=== PATIENT | female | born 1980 | race Caucasian/White ===

== ENCOUNTER 2022-06-25 07:09 | Emergency (ER) | payer MEDICARE, SELFPAY ==
[2022-06-25 07:16] VITALS: BP 166/113; PULSE 96; TEMP 36.9; O2SAT 97; BMI 37.1
--- NOTE | 2022-06-25 07:22 | ED_ITS ---
HPI - Abdominal Pain General: Chief Complaint: Abdominal Pain Stated Complaint: abdomen pain Time Seen by Provider: 06/25/22 07:21 Source: patient Mode of arrival: ambulatory History of Present Illness: 42-year-old female presents emergency room complaining of sharp right lower quadrant abdominal pain that began yesterday. She denies fever sweats chills nausea vomiting diarrhea no hematochezia melena hematemesis coffee-ground emesis no dysuria urgency or frequency. Symptoms began yesterday afternoon and have persisted since then. She previously had ovarian cyst and had a surgery for that. MD elicited complaint: abdominal pain Onset (ago): day(s) (1) Pain Consistency: constant Location: RLQ Severity: mild Quality: cramping Radiation: none Migration to: no migration Exacerbating factors: nothing Associated Symptoms: Denies anorexia, belching, bloating, change in bowel habits, change in stool character, chills, coffee ground emesis, constipation, GI cramping, diarrhea, dyspepsia, dysuria, excessive flatus, fever(s), heartburn, hematochezia, hematuria, hematemesis, fecal incontinence, loose stools, melena, nausea, poor appetite, syncope and vomiting Review of Systems Const: Denies: fever(s) or chills Card: Denies: syncope GI: Denies: nausea, vomiting, hematemesis, coffee ground emesis, heartburn, d iarrhea, constipation, bloating, GI cramping, belching, excessive flatus, fecal incontinence, change in bowel habits, change in stool character, hematochezia or melena : Denies: dysuria or hematuria PFSH ED PFSH: Family History Grandmother Stroke maternal Grandfather Stroke maternal Cancer brain paternal Diabetes maternal Hypertension paternal Mother Hypertension Lung disease reactive airway disease Father Hypertension Brother Hypertension Sister Lung disease reactive airway disease Denies family history of CAD (coronary artery disease) Chronic kidney disease (CKD) Social History Smoking and tobacco status: never smoked Alcohol intake: never Adopted: No Caregiver/support person: No Lives independently: No Marital status: Single service: No Current occupational status: disabled Current gender identity: Female Physical Exam Const: GENERAL APPEARANCE: cooperative and comfortable ORIENTATION/CONSCIOUSNESS: Yes awake, Yes oriented to person, Yes oriented to place and Yes oriented to time HENMT: COMMON NORMALS: normocephalic, atraumatic and hearing grossly normal bilaterally HEAD & SCALP: normocephalic and atraumatic Resp: COMMON NORMALS: normal respiratory effort, No retractions, No use of accessory muscles and clear to auscultation bilaterally AUSCULTATION: clear to auscultation bilaterally Cardio: COMMON NORMALS: regular rate, regular rhythm and No murmurs present (Cardio) RATE: regular rate RHYTHM: regular rhythm GI: COMMON NORMALS: Soft to palpation and No hepatosplenomegaly present AUSCULTATION: Yes normoactive bowel sounds PALPATION: Yes Soft to palpation, No Tenderness to palpation present (GI), No Guarding due to palpation present (GI) and Yes No hepatosplenomegaly present Extremity: COMMON NORMALS: normal to inspection, capillary refill normal, no clubbing, cyanosis or edema, no calf tenderness and no pedal edema Neuro: SENSORIUM/ORIENTATION: Yes oriented to person, Yes oriented to place and Yes oriented to time Skin: COMMON NORMALS: no rashes or lesions noted GENERAL SKIN EXAM: no rashes or lesions noted Course Vital Signs: Vital signs: Vital Signs Temperature 98.5 F 06/25/22 07:16 Pulse Rate 89 06/25/22 08:33 Respiratory Rate 18 06/25/22 08:33 Blood Pressure 132/80 06/25/22 08:33 Pulse Oximetry 96 06/25/22 08:33 Oxygen Delivery Me thod 06/25/22 08:33 MDM - Abdominal Pain Medical Decision Making Labs and imaging reviewed. EKG shows normal sinus rhythm no acute ST changes. CT shows normal appendix no significant abnormalities adnexa. There is acute diverticulitis. We will treat with Cipro and Flagyl clinic diet 2 to 3 days and advance as tolerated. patient advised to follow-up with her primary care doctor should have a colonoscopy in the next few months after this has resolved. Medical Records I reviewed the patient's medical records. Lab Data I reviewed the patient's lab results. 06/25/22 07:45 06/25/22 07:45 Labs/Radiology: Radiology Impressions Abdomen/Pelvis CT 06/25/22 08:10 IMPRESSION: 1. Acute sigmoid diverticulitis. Asymmetric wall thickening with narrowing of the lumen with numerous adjacent diverticula. No abscess. Consider follow-up colonoscopy after the acute diverticulitis resolves to exclude an underlying lesion. Colonoscopy recommended due to the asymmetry of the lumen and wall thickening. 2. Normal appendix. 3. Negative gallbladder. 4. Moderate hiatal hernia. 5. Lobulated uterus with distortion of the central endometrial canal. Favor fibroid uterus. Recommend transvaginal pelvic ultrasound evaluation on an outpatient basis which can be performed after the patient's acute diverticulitis resolves. Laboratory Results WBC 12.1 10^3/uL (4.0-10.0) H 06/25/22 07:45 RBC 4.88 10^6/uL (4.1-5.3) 06/25/22 07:45 Hgb 13.3 g/dL (11.5-15.3) 06/25/22 07:45 Hct 41.9 % (37.0-47.0) 06/25/22 07:45 MCV 85.9 fl (81-99) 06/25/22 07:45 MCH 27.3 pg (28.0-34.0) L 06/25/22 07:45 MCHC 31.7 g/dL (30.0-36.0) 06/25/22 07:45 RDW 13.1 % (12.1-15.1) 06/25/22 07:45 Plt Count 396 10^3/cmm (130-400) 06/25/22 07:45 MPV 9.6 fL (7.4-10.4) 06/25/22 07:45 Neut % (Auto) 71.5 % 06/25/22 07:45 Lymph % (Auto) 17.2 % 06/25/22 07:45 Catron % (Auto) 9.2 % 06/25/22 07:45 Eos % (Auto) 1.2 % 06/25/22 07:45 Baso % (Auto) 0.5 % 06/25/22 07:45 Neut # (Auto) 8.66 10^3/uL (1.8-7.7) H 06/25/22 07:45 Lymph # (Auto) 2.1 10^3/uL (0.8-4.8) 06/25/22 07:45 Catron # (Auto) 1.1 10^3/uL (0.2-0.9) H 06/25/22 07:45 Eos # (Auto) 0.2 10^3/uL (0.0-0.8) 06/25/22 07:45 Baso # (Auto) 0.1 10^3/uL (0.0-0.1) 06/25/22 07:45 Nucleated RBC % (auto) 0 % 06/25/22 07:45 Nucleated RBCs # 0.0 /100WBC 06/25/22 07:45 Sodium 137 mmol/L (136-145) 06/25/22 07:45 Potassium 4.1 mmol/L (3.5-5.1) 06/25/22 07:45 Chloride 99 mmol/L (98-107) 06/25/22 07:45 Carbon Dioxide 27 mmol/L (22-29) 06/25/22 07:45 Anion Gap 15.1 (5-19) 06/25/22 07:45 BUN 10 mg/dL (6-20) 06/25/22 07:45 Creatinine 0.8 mg/dL (0.5-0.9) 06/25/22 07:45 GFR Calculation 79.4 mL/min (90-130) L 06/25/22 07:45 Glucose 117 mg/dL (65-115) H 06/25/22 07:45 Calculated Osmolality 284 mOsm/kg (285-295) L 06/25/22 07:45 Calcium 9.2 mg/dL (8.5-10.5) 06/25/22 07:45 Total Bilirubin 0.6 mg/dL (0.15-1.2) 06/25/22 07:45 AST 16 U/L (0-32) 06/25/22 07:45 ALT 11 U/L (0-33) 06/25/22 07:45 Alkaline Phosphatase 113 U/L (35-105) H 06/25/22 07:45 Total Protein 7.9 g/dL (6.6-8.7) 06/25/22 07:45 Albumin 4.2 g/dL (3.5-5.2) 06/25/22 07:45 Globulin 3.7 g/dL (1.3-4.6) 06/25/22 07:45 Lipase 24 U/L (13-60) 06/25/22 07:45 Discharge Plan Discharge Patient Disposition: Home Clinical Impression: Diverticulitis Condition: Stable Prescriptions: New Cipro 500 mg tablet 500 mg PO BID Qty: 14 0RF metronidazole 500 mg tablet 500 mg PO BID 7 Days Qty: 14 0RF No Action fluticasone propionate [Flonase Allergy Relief] 50 mcg/actuation spray,de oliveira spension 2 spray intranasal DAILY PRN (Reason: Allergy Symptoms) Hold Instructions: Doctor's Order Rx Instructions: administer into each nostril Benadryl 25 mg Capsule 25 mg PO DAILY PRN (Reason: Allergy Symptoms) ibuprofen 200 mg Tablet 400 mg PO Q6H PRN (Reason: Pain) All Day Allergy (cetirizine) 10 mg capsule 10 mg PO DAILY PRN (Reason: Allergy Symptoms) Discharge Orders: Discharge ED (Routine); Ordered 06/25/22 Ordered By: Blake Olivares Referrals: Davide Webster FNP [Primary Care Provider] - Discharge Diet: Clear Liquid Discharge Activity: Increase activity as tolerated Patient Instructions: Opioid Safety, Pain Management Activity Restrictions/Additional Instructions: You are seen today for abdominal pain. CT showed you have mild diverticulitis we will start you on ciprofloxacin and trimethoprim sulfamethoxazole, both are 1 tablet twice daily for 7 days. Follow-up with your primary care doctor. You should have a colonoscopy within the next few months after this has resolved. Recommend clear liquid diet for the next 2 to 3 days and advance as tolerated. Return if you have further problems. 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
--- NOTE | 2022-06-25 07:36 | ECG_ITS ---
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
[2022-06-25 07:55] VITALS: BP 142/81; PULSE 91; RESP 16; O2SAT 94
[2022-06-25 08:03] LABS: Basophils # 0.1 10^3/uL (0.0-0.1); Basophils % 0.5 %; Eosinophils # 0.2 10^3/uL (0.0-0.8); Eosinophils % 1.2 %; Hematocrit 41.9 % (37.0-47.0); Hemoglobin 13.3 g/dL (11.5-15.3); Lymphocytes # 2.1 10^3/uL (0.8-4.8); Lymphocytes % 17.2 %; Mean Corpuscular HGB Conc 31.7 g/dL (30.0-36.0); Mean Corpuscular Hemoglobin 27.3 pg (28.0-34.0); Mean Corpuscular Volume 85.9 fl (81-99); Mean Platelet Volume 9.6 fL (7.4-10.4); Monocytes # 1.1 10^3/uL (0.2-0.9); Monocytes % 9.2 %; Neutrophils # 8.66 10^3/uL (1.8-7.7); Neutrophils % 71.5 %; Nucleated Red Blood Cells % 0 %; Platelet Count 396 10^3/cmm (130-400); Red Blood Count 4.88 10^6/uL (4.1-5.3); Red Cell Distribution Width 13.1 % (12.1-15.1); White Blood Count 12.1 10^3/uL (4.0-10.0)
--- NOTE | 2022-06-25 08:10 | CT_ITS ---
WS: [id number] CT ABDOMEN AND PELVIS NONCONTRAST HISTORY: Abdominal pain TECHNIQUE: Imaging performed through the abdomen and pelvis. Coronal and sagittal reformats are submi tted. All CT scans at [facility] use at least one of these dose optimization techniques: auto mated exposure control; mA and/or kV adjustment per patient size (includes targeted exams where dose is matched to clinical indication); or iterative reconstruction. DLP: 1112.03 mGy.cm COMPARISON: None available. Lower thorax: Lung bases are clear. Visualized heart is normal. Moderate hiatal hernia. Liver: Normal size liver. No mass or bile duct dilatation. Gallbladder: Normal gallbladder. Pancreas: Normal size and attenuation. Normal pancreatic duct. No pancreatitis or mass. Spleen: Normal size with granulomata. Adrenal glands: Normal. No mass. Right kidney: Normal size kidney with no mass or hydronephrosis. Left kidney: Normal size kidney with no mass or hydronephrosis. Aorta: Normal abdominal aorta, no aneurysm or atherosclerosis. No free fluid, intraperitoneal air or significant lymphadenopathy. GI tract: Nondistended stomach. No small bowel obstruction. Normal appendix. Numerous diverticula in the distal colon. There is an area of marked asymmetric soft tissue thickening with increased attenua tion involving the sigmoid colon. The lumen is asymmetrically positioned and there is significant per icolonic inflammation and diverticula. No free air. No abscess. Abdominal wall: Negative. No hernia. Pelvis: Lobulated uterus. Distortion of the endometrium. The central endometrial cavity is not identi fied. Lobulated mass along the posterior uterus measures 4.8 x 4.7 cm. Favor fibroid uterus. There ar e probably additional fibroids. No free fluid. Negative urinary bladder. Osseous structures: Unremarkable. CT/CT abdomen pelvis wo con [id number] IMPRESSION: 1. Acute sigmoid diverticulitis. Asymmetric wall thickening with narrowing of the lumen with numerous adjacent diverticula. No abscess. Consider follow-up co lonoscopy after the acute diverticulitis resolves to exclude an underlying lesi on. Colonoscopy recommended due to the asymmetry of the lumen and wall thickeni ng. 2. Normal appendix. 3. Negative gallbladder. 4. Moderate hiatal hernia. 5. Lobulated uterus with distortion of the central endometrial canal. Favor fi broid uterus. Recommend transvaginal pelvic ultrasound evaluation on an outpati ent basis which can be performed after the patient's acute diverticulitis resol ves.
[2022-06-25 08:19] LABS: Alanine Aminotransferase 11 U/L (0-33); Albumin Level 4.2 g/dL (3.5-5.2); Alkaline Phosphatase 113 U/L (35-105); Anion Gap 15.1 (5-19); Aspartate Amino Transferase 16 U/L (0-32); Blood Urea Nitrogen 10 mg/dL (6-20); Calcium 9.2 mg/dL (8.5-10.5); Carbon Dioxide 27 mmol/L (22-29); Chloride 99 mmol/L (98-107); Globulin 3.7 g/dL (1.3-4.6); Glomerular Filtration Rate 79.4 mL/min (90-130); Glucose 117 mg/dL (65-115); Lipase 24 U/L (13-60); Osmolality Calculated 284 mOsm/kg (285-295); Potassium 4.1 mmol/L (3.5-5.1); Sodium 137 mmol/L (136-145); Total Bilirubin 0.6 mg/dL (0.15-1.2); Total Protein 7.9 g/dL (6.6-8.7)
[2022-06-25 08:29] VITALS: BP 132/80; PULSE 92; RESP 16; O2SAT 96
[2022-06-25] MEDS: sodium chloride 0.9% 1,000 ML 999 ML IV (08:29)
[2022-06-25 08:33] VITALS: BP 132/80; PULSE 89; RESP 18; O2SAT 96
[2022-06-25 10:01] LABS: Add Urine Microscopic? YES; Bilirubin Urine Neg (Negative); Blood Urine Neg (Negative); Glucose Urine UA Norm (Normal); Ketones Urine Negative (Negative); Leukocyte Esterase Urine Negative (Negative); Nitrate Urine Negative (Negative); Protein Urine Neg (Negative); RBC Urine 0-4 /hpf (0-2); Urine Appearance Hazy (CLEAR); Urine Color Yellow (Yellow); Urobilinogen Urine Norm (Negative); WBC Urine 0-4 /hpf (0-5); pH Urine 5 (5-7)
[2022-06-25 10:02] LABS: Add Urine Culture? No; Bacteria Urine 1+ /hpf
== END 2022-06-25 09:52 | disposition home or self-care (01) ==
PROVIDERS: Emergency Provider Family Medicine; PCP Nurse Practitioner Family
DX: K57.92 Diverticulitis of intestine, part unspecified, without perforation or abscess without bleeding (principal); K44.9 Diaphragmatic hernia without obstruction or gangrene
CPT/HCPCS: 74176; 80053; 81001; 83690; 85025; 93005; 96360; 99285; J7030

== ENCOUNTER 2022-07-29 14:47 | Outpatient (CLI) | payer MEDICARE, SELFPAY ==
--- NOTE | 2022-07-29 15:15 | US_ITS ---
WS: [id number] US pelvic complete* [id number] HISTORY: Fibroids, possible ruptured ovarian cyst. COMPARISON: CT 06/25/2022. Uterus: 8.6 cm x 4.6 cm x 4.5 cm. The uterus is very difficult to visualize as a normal structure. There are multiple intermediate, ana ogeneous masses within the pelvis surrounding and inseparable from the uterus. These correspond to th e findings seen on the recent ultrasound. Part of the uterus does appear displaced suggesting these m ay be external to the uterus. Due to their homogeneous echogenicity could be endometriomas. There is a large mass posterior to the uterus and displacing the uterus anteriorly. This mass extends to the L EFT of midline. There may be several masses. The largest to the LEFT of midline measures 6.4 x 4.8 x 7.5 cm. On the recent CT masses were noted posterior to the uterus and extending into the adnexa but greatest on the LEFT. Endometrium: 1.0 cm. Displaced by the pelvic masses. Neither ovary is identified. No free fluid in the cul-de-sac. US/US pelvic complete* [id number] IMPRESSION: 1. Bulky homogeneous masses within the pelvis. These are within the cul-de-sac and extending into the adnexa but greatest to the LEFT. The uterus appears dis placed therefore I suspect these are extrauterine masses and may be endometriom as due to their appearance. The largest to the LEFT extending from the cul-de-s ac measures 6.4 x 4.8 x 7.5 cm. Suggest FIELD TEST ENGINEER evaluation. 2. Neither ovary is identified.
== END 2022-07-29 14:48 | disposition home or self-care (01) ==
PROVIDERS: PCP Nurse Practitioner Family; Visit Provider Nurse Practitioner Family
DX: Q51.3 Bicornate uterus (principal); N85.4 Malposition of uterus; R19.04 Left lower quadrant abdominal swelling, mass and lump
CPT/HCPCS: 76856